=== PATIENT | female | born 1960 | race Hispanic/Latino ===

== ENCOUNTER 2018-08-17 08:16 | Emergency (ER) | payer BC ==
[2018-08-17] MEDS ORDERED: DIAZEPAM 5 MG TABLET ONE (08:51)
[2018-08-17] MEDS ORDERED: KETOROLAC TROMETHAMINE 30MG/ML ONE (08:52)
[2018-08-17] MEDS ORDERED: CYCLOBENZAPRINE HCL 10 MG TABLET ONE (08:53)
== END 2018-08-17 11:13 | disposition home or self-care (01) ==
LOC: EDH 08:16
DX: S22.088A Other fracture of T11-T12 vertebra, initial encounter for closed fracture (principal); W11.XXXA Fall on and from ladder, initial encounter; Y93.89 Activity, other specified; Y92.89 Other specified places as the place of occurrence of the external cause; Y99.8 Other external cause status
CPT/HCPCS: 74176; 96372; 99284; J1885

== ENCOUNTER → 2018-09-18 | Outpatient (CLI) | payer BC | END | disposition home or self-care (01) | LOC: OIH 11:10 | PROVIDERS: ATTEND Neurological Surgery | DX: M48.54XA Collapsed vertebra, not elsewhere classified, thoracic region, initial encounter for fracture (principal); M47.814 Spondylosis without myelopathy or radiculopathy, thoracic region | CPT/HCPCS: 72070 ==

== ENCOUNTER 2021-06-29 10:06 | Inpatient (IN) | payer BC ==
[~2021-06-29] VITALS: Ht 157.5 cm; Wt 71.7 kg
[2021-06-29 11:00] LABS: BASOPHILS % (AUTO) 1.4 % (0.0-5.0); EOSINOPHILS % (AUTO) 2.8 % (0.0-8.0); HEMATOCRIT 32.3 % (36-48); LYMPHOCYTES % (AUTO) 14.5 % (21.0-51.0); MEAN CORPUSCULAR HGB CONC 35.3 g/dL (32.0-36.0); MEAN CORPUSCULAR VOLUME 90.7 fL (79-99); MONOCYTES % (AUTO) 18.6 % (3.0-13.0); NEUTROPHILS % (AUTO) 62.2 % (40.0-77.0); PLATELET COUNT (AUTO) 228 K/uL (130-400); RED BLOOD CELL COUNT(AUTO) 3.56 MIL/uL (4.00-5.50); WHITE BLOOD COUNT (AUTO) 4.3 K/uL (4.8-10.8)
[2021-06-29] MEDS ORDERED: KETOROLAC 15MG/ML VIAL (15MG/ML) IV ONE (11:00)
[2021-06-29] MEDS ORDERED: ORPHENADRINE CITRATE 30 MG/ML ML IV ONE (11:00)
[2021-06-29 11:14] LABS: CREATININE 0.8 mg/dL (0.5-1.5)
[2021-06-29 11:18] LABS: B-TYPE NATRIURETIC PEPTIDE 20 pg/mL (0-100)
[2021-06-29 11:25] LABS: ALBUMIN 3.1 g/dL (3.5-5.0); BILIRUBIN,TOTAL 0.7 mg/dL (0.2-1.0); TOTAL PROTEIN, SERUM 6.8 g/dL (6.0-8.3)
[2021-06-29] MEDS ORDERED: IOHEXOL-350 75 ML VIAL IV ONE (12:33)
[2021-06-29] MEDS ORDERED: FUROSEMIDE 40MG VIAL ONE (14:17)
[2021-06-29] MEDS ORDERED: FUROSEMIDE 40MG VIAL IV ONE (14:30)
[2021-06-29] MEDS ORDERED: ZOLPIDEM TARTRATE 5 MG TAB PO PRN (15:30)
[2021-06-29] MEDS ORDERED: ACETAMINOPHEN 325 MG TAB PO PRN (15:30)
[2021-06-29] MEDS ORDERED: MAG/ALUM/SIMETH 30 ML UDCUP PO PRN (15:30)
[2021-06-29] MEDS ORDERED: ONDANSETRON 4MG INJ IV PRN (15:30)
[2021-06-29] MEDS ORDERED: DIPHENHYDRAMINE HCL 25 MG CAPSULE PO PRN (15:30)
[2021-06-29] MEDS ORDERED: DiphenhydrAMINE HCL 50 MG/ML VIAL IV PRN (15:30)
[2021-06-29] MEDS ORDERED: ACETAMINOPHEN WITH CODEINE 1 TAB TAB PO PRN (15:30)
[2021-06-29] MEDS ORDERED: DOXYCYCLINE 100MG+NS 250ML 250 ML IV ONE (17:09)
[2021-06-29] MEDS ORDERED: CEFEPIME HCL 2 GM VIAL ONE (17:09)
[2021-06-29] MEDS: CEFEPIME HCL 2 GM VIAL IVP SCH (17:27)
[2021-06-29] MEDS: DOXYCYCLINE 100MG+NS 250ML IV SCH (17:27)
[2021-06-29] MEDS: 0.9% NACL 250ML IVPB SCH (17:28)
[2021-06-30] VITALS (7 sets, daily range): BP systolic 109–146; BP diastolic 44–71
[2021-06-30 04:43] LABS: HEMATOCRIT 34.5 % (36-48); MEAN CORPUSCULAR HEMOGLOBIN 31.6 pg (27.0-33.0); MEAN CORPUSCULAR HGB CONC 34.2 g/dL (32.0-36.0); MEAN CORPUSCULAR VOLUME 92.2 fL (79-99); RED BLOOD CELL COUNT(AUTO) 3.74 MIL/uL (4.00-5.50); RED CELL DISTRIBUTION WIDTH 18.1 % (11.0-15.5); WHITE BLOOD COUNT (AUTO) 5.6 K/uL (4.8-10.8)
[2021-06-30 05:08] LABS: BILIRUBIN,TOTAL 0.9 mg/dL (0.2-1.0); CREATININE 0.7 mg/dL (0.5-1.5); POTASSIUM 3.5 mmol/L (3.5-5.1); TOTAL PROTEIN, SERUM 6.7 g/dL (6.0-8.3)
[2021-06-30] MEDS: CEFEPIME HCL 2 GM VIAL IVP SCH (05:23)
[2021-06-30] MEDS: DOXYCYCLINE 100MG+NS 250ML IV SCH (06:26)
[2021-06-30] MEDS: 0.9% NACL 250ML IVPB SCH (06:26)
[2021-06-30 07:01] LABS: INR 1.11 (0.85-1.15)
[2021-06-30 07:02] LABS: PARTIAL THROMBOPLASTIN TIME 28.1 SEC (26.3-35.5)
[2021-06-30] MEDS ORDERED: FUROSEMIDE 40 MG TABLET PO SCH (09:00)
[2021-06-30] MEDS: PANTOPRAZOLE 40 MG TAB DR PO SCH (09:07)
[2021-06-30] MEDS ORDERED: GUAIFENESIN-CODEINE 5 ML SYRUP PO PRN (11:30)
[2021-06-30] MEDS ORDERED: CAPE500T14 PO (15:58)
[2021-07-01 04:18] LABS: HEMATOCRIT 32.4 % (36-48); MEAN CORPUSCULAR HGB CONC 34.3 g/dL (32.0-36.0); MEAN CORPUSCULAR VOLUME 93.4 fL (79-99); RED BLOOD CELL COUNT(AUTO) 3.47 MIL/uL (4.00-5.50); RED CELL DISTRIBUTION WIDTH 18.4 % (11.0-15.5); WHITE BLOOD COUNT (AUTO) 5.4 K/uL (4.8-10.8)
[2021-07-01 04:24] VITALS: BP 109/50
[2021-07-01 04:36] LABS: CREATININE 0.7 mg/dL (0.5-1.5); POTASSIUM 3.8 mmol/L (3.5-5.1)
[2021-07-01] MEDS ORDERED: ZOSYN 3.375GM+NS 50ML 3.38 GM in 0.9%NACL 50ML 50 ML IV SCH (06:30)
[2021-07-01] MEDS: ZOSYN 3.375GM+NS 50ML 50 ML IV SCH ×3 (07:06→13:00)
[2021-07-01 08:35] VITALS: BP 102/75
[2021-07-01] MEDS ORDERED: FUROSEMIDE 40 MG TABLET PO SCH (09:00)
[2021-07-01] MEDS ORDERED: PREDNISONE 20 MG TABLET PO SCH (09:00)
[2021-07-01] MEDS ORDERED: KCL 20 MEQ ERTAB PO SCH (09:00)
[2021-07-01] MEDS: PANTOPRAZOLE 40 MG TAB DR PO SCH (09:52)
[2021-07-01] MEDS ORDERED: PRED10TA3 PO (10:42)
[2021-07-01] MEDS ORDERED: FURO40TA7 PO (10:42)
[2021-07-01 12:31] VITALS: BP 106/55
== END 2021-07-01 15:45 | disposition home or self-care (01) | DRG 177 ==
LOC: EDH 10:06 → EDHIP 10:07 → 3BH 06-30 00:39
PROVIDERS: ADMIT Internal Medicine; ATTEND Internal Medicine
DX: J15.6 Pneumonia due to other Gram-negative bacteria (principal); J96.90 Respiratory failure, unspecified, unspecified whether with hypoxia or hypercapnia; D84.89 Other immunodeficiencies; Z85.3 Personal history of malignant neoplasm of breast; Z79.899 Other long term (current) drug therapy; Z90.12 Acquired absence of left breast and nipple; Z92.3 Personal history of irradiation; Z20.822 Contact with and (suspected) exposure to COVID-19
CPT/HCPCS: 36415; 71045; 71275; 80048; 80053; 83615; 83880; 84145; 84484; 84702; 85025; 85027; 85610; 85651; 85730; 86140; 87635; 93005; 93306; 93356; 93970; C9803; G0378; J0692; J1885; J1940; J2543; J3490; J7050; Q9967